=== PATIENT | male | born 2000 | race African-American/Black ===

== ENCOUNTER 2022-01-01 07:33 | Emergency (ER) | payer OTHER ==
[~2022-01-01] VITALS: Ht 190.5 cm; Wt 78.2 kg
[2022-01-01 10:59] VITALS: BP 134/69
== END 2022-01-01 11:02 | disposition home or self-care (01) ==
LOC: M ED 07:33
DX: M25.462 Effusion, left knee (principal); M54.50 Low back pain, unspecified; Y99.1 Military activity